=== PATIENT | female | born 1955 | race Caucasian/White ===

== ENCOUNTER 2016-06-18 08:02 | Day surgery (SDC) | payer OTHER ==
[2016-06-16 13:46] LABS: HEMATOCRIT 40.1 % (36.0-48.0); HEMOGLOBIN 13.4 g/dL (12.0-16.0)
[2016-06-16 14:03] LABS: A/G RATIO 1.4 (0.7-1.9); ALKALINE PHOSPHATASE 98 U/L (45-117); BUN (BLOOD UREA NITROGEN) 15 MG/DL (6-23); CALCIUM, SERUM 9.2 MG/DL (8.5-10.4); CHLORIDE, SERUM 105 MMOL/L (96-112); CO2 (CARBON DIOXIDE) 31 MMOL/L (24-34); CREATININE 0.67 MG/DL (0.55-1.02); GFR AFRICAN AMERICAN 108 ML/MIN (>=60); GFR NON AFRICAN AMERICAN 94 ML/MIN (>=60); GLOBULIN 2.9 G/DL (2.5-4.1); GLUCOSE, SERUM 92 MG/DL (60-99); POTASSIUM, SERUM 4.5 MMOL/L (3.5-5.3); SGOT(AST) 14 U/L (5-40); SGPT(ALT) 21 U/L (5-65); SODIUM, SERUM 143 MMOL/L (135-148); TOTAL BILIRUBIN 0.5 MG/DL (0-1.2); TOTAL PROTEIN 6.9 G/DL (6.0-8.5)
--- NOTE | ~2016-06-18 | OP ---
Record Of Operation [facility] [address] [place]. [address] NAME: CLIF OHARA : 51 STATUS : [facility] [place] PAT#: [id number] AGE: 61 ADM/REG DATE : 06/18/16 MR#: [id number] REPORT SERV DATE: 06/18/16 DICTATED BY: REJI KAUFMAN DATE: 06/18/16 REPORT STATUS : Draft TRANSCRIBED BY: MODL DATE: 06/18/16 DATE OF PROCEDURE: 06/18/2016 PREOPERATIVE DIAGNOSES: 1. Cholelithiasis with chronic cholecystitis. 2. Hyperlipidemia. 3. Hypertension. POSTOPERATIVE DIAGNOSES: 1. Cholelithiasis with chronic cholecystitis. 2. Hyperlipidemia. 3. Hypertension. PROCEDURE: Laparoscopic cholecystectomy. ANESTHESIA: General. SURGEON: Reji Kaufman M.D. SPACER TYPE BAR AND SEGMENT: Lili Martinez NP. COMPLICATIONS: None. DRAINS: None. ESTIMATED BLOOD LOSS: 20 mL. FINDINGS: 1. The patient was noted to have abnormal preoperative liver function studies and normal- sized cystic duct intraoperatively. Therefore, no cholangiogram was obtained. 2. The patient was noted to have gallbladder wall thickening consistent with chronic cholecystitis with gallstones. OPERATIVE TECHNIQUE: The patient was brought to the operating room and placed on the table in supine position. She had preoperative IV antibiotics. She had sequential hose in place. She voided prior to the procedure. She underwent general endotracheal anesthesia and was prepped and draped in a sterile fashion and time-out was completed. Local anesthesia was instilled to the periumbilical skin. A 15 blade knife was used to make incision through the base of the umbilicus. The skin and fascia were elevated and a Veress needle was inserted and water drop test safely performed. An 11 mm trocar was inserted through the umbilicus followed by the laparoscope. There was no evidence of Veress or trocar injury. She was then placed in reverse Trendelenburg and rolled to the left. An 11 mm subxiphoid and two 5 mm right upper quadrant trocars were placed under direct visualization. The gallbladder fundus was grasped and elevated over the liver edge as the infundibulum was retracted inferolaterally. The cystic duct-gallbladder junction was identified on its lateral aspect. It was carefully bluntly dissected circumferentially with a [place] dissector. This Record Of Operation [facility] [address] [place]. [address] NAME: CLIF OHARA : 51 STATUS : [facility] [place] PAT#: [id number] AGE: 61 ADM/REG DATE : 06/18/16 MR#: [id number] REPORT SERV DATE: 06/18/16 DICTATED BY: REJI KAUFMAN DATE: 06/18/16 REPORT STATUS : Draft TRANSCRIBED BY: MODL DATE: 06/18/16 dissection continued at the cystic duct-gallbladder junction until it was completely encircled and visualized in 360 degree. At this point, dissection more medial revealed the cystic artery and it was identified on the gallbladder wall. It was encircled as well using blunt dissection. Next, two clips were placed proximally and distally under direct visualization on the cystic duct and cystic artery. They were then divided between the clips. There was no gross encroachment of the common bile duct. The gallbladder was then removed from the hepatic fossa using electrocautery hook and extracted through the umbilicus. The laparoscopic trocar was reinserted. Examination of the hepatic fossa was noted to be hemostatic. The clips were noted to be intact without encroachment of the common bile duct. There was no evidence of any bleeding, biliary spillage, or other visual abnormalities. At this point, all the instruments and trocars were removed under direct visualization as the pneumoperitoneum was aspirated. The umbilical fascia was reapproximated using a [id number] Vicryl suture. The skin edges were reapproximated using absorbable subcuticular Monocryl sutures. Dermabond was applied. She was extubated and taken to the recovery room in stable condition. All sponge and needle counts were reported correct. /RUDY Reji Kaufman M.D. / [id number] CC: Shubham Delacruz JOLEEN W
[~2016-06-18 08:02] MED LIST: ASAB PO; COZ50 PO; OS500+D PO; SINGULAIR1 PO; WELLXL150 PO; ZOCOR20 PO
== END 2016-06-18 16:17 | disposition home or self-care (01) ==
LOC: SDC 08:02
PROVIDERS: Surgery
PROC: 0FT44ZZ Resection of Gallbladder, Percutaneous Endoscopic Approach (ICD-10-PCS; principal; 2016-06-18 10:15)
DX: K81.1 Chronic cholecystitis (principal); E78.5 Hyperlipidemia, unspecified; I10 Essential (primary) hypertension; F32.9 Major depressive disorder, single episode, unspecified; Z79.82 Long term (current) use of aspirin; Z79.899 Other long term (current) drug therapy; Z98.41 Cataract extraction status, right eye; Z98.42 Cataract extraction status, left eye; Z96.1 Presence of intraocular lens; E78.00 Pure hypercholesterolemia, unspecified; Z98.51 Tubal ligation status; Z90.89 Acquired absence of other organs; Z98.890 Other specified postprocedural states; Z88.8 Allergy status to other drugs, medicaments and biological substances
CPT/HCPCS: 80053; 85014; 85018; 88304; 93005; A9270-GY; J0690; J1885; J2250; J2405; J2550; J2710; J3010